=== PATIENT | male | born 1980 | race Caucasian/White ===

== ENCOUNTER 2022-05-21 19:00 | Emergency (ER) | payer OTHER ==
[2022-05-21 22:04] LABS: BASOPHIL 0.5 % (0-2); EOSINOPHIL 2.3 % (0-5); HCT 42.3 % (42.0-52.0); HGB 14.3 g/dl (13.2-18.0); LYMPHOCYTE 28.2 % (15-48); MCHC 33.8 g/dL (32.0-36.0); MCV 91.8 fL (78.0-100.0); MONOCYTE 7.1 % (0-12); MPV 10.7 fL (6.0-9.5); NEUTROPHIL 61.6 % (41-80); NRBC 0; PLT 273 K/uL (150-400); RBC 4.61 M/uL (4.70-6.00); RDW 12.5 % (11.5-14.0); WBC 10.2 K/uL (4.0-10.5)
[2022-05-21 22:28] LABS: BUN 19 mg/dL (7-18); BUN/CREAT RATIO (CALC) 20.7 RATIO; CHLORIDE 104 mmol/L (98-107); CO2 (BICARBONATE) 26 mmol/L (21-32); CREATININE 0.92 mg/dL (0.67-1.17); GLUCOSE 95 mg/dL (74-106); POTASSIUM 3.7 mmol/L (3.5-5.1)
[2022-05-21 22:37] LABS: CORONAVIRUS 2019 SARS-COV-2 NEGATIVE (NEGATIVE); INFLUENZA A NAA NEGATIVE (NEGATIVE)
== END 2022-05-21 23:17 | disposition home or self-care (01) ==
LOC: FER 19:00
PROVIDERS: Nurse Practitioner Family
DX: R07.89 Other chest pain (principal); M79.602 Pain in left arm; F17.210 Nicotine dependence, cigarettes, uncomplicated; Z88.0 Allergy status to penicillin; Z20.822 Contact with and (suspected) exposure to COVID-19; Z28.310 Unvaccinated for COVID-19
CPT/HCPCS: 36415; 71045; 80048; 84484; 85025; 93005; U0002